=== PATIENT | male | born 1985 ===

== ENCOUNTER 2017-04-28 09:30 | Inpatient (IN) | payer OTHER ==
[~2017-04-28] VITALS: Ht 180.3 cm; Wt 92.5 kg
[2017-04-28] MEDS ORDERED: GLYCOTROL CAPS1 EACH PO (12:18)
[2017-04-28] MEDS ORDERED: DHEA50 M1 PO (12:18)
[2017-04-28] MEDS ORDERED: MULTI VITAMIN1 EACH PO (12:18)
[2017-04-28] MEDS ORDERED: DOCUSATE CALCI240 MG PO (12:19)
[2017-04-28] MEDS ORDERED: IRON18 MG PO (12:19)
== END 2017-05-01 17:12 | disposition home or self-care (01) | DRG 641 ==
LOC: SURG 04-29 09:20 → O/R 04-29 09:20 → SURG 04-29 09:30
PROVIDERS: Specialist
PROC: 0HB7XZZ Excision of Abdomen Skin, External Approach (ICD-10-PCS; principal; 2017-04-29 09:30)
PROC: 0HB5XZZ Excision of Chest Skin, External Approach (ICD-10-PCS; 2017-04-29 09:30)
DX: E65 Localized adiposity (principal); E66.01 Morbid (severe) obesity due to excess calories; M95.4 Acquired deformity of chest and rib; R33.8 Other retention of urine; D64.89 Other specified anemias; Z98.84 Bariatric surgery status